=== PATIENT | female | born 1955 | race Caucasian/White ===

== ENCOUNTER → 2020-10-19 | Outpatient (CLI) | payer OTHER | LOC: M.LAB 16:27 | PROVIDERS: ATTEND Surgery | DX: Z01.812 Encounter for preprocedural laboratory examination (principal); Z20.822 Contact with and (suspected) exposure to COVID-19; K42.9 Umbilical hernia without obstruction or gangrene; K80.12 Calculus of gallbladder with acute and chronic cholecystitis without obstruction ==

== ENCOUNTER 2020-12-31 14:51 | Emergency (ER) | payer OTHER ==
[~2020-12-31] VITALS: Ht 154.9 cm; Wt 62.6 kg
[2020-12-31] MEDS ORDERED: VASOTEC5 MG PO (15:15)
[2020-12-31] MEDS ORDERED: LEVOTHYROXINE75 MC1 PO (15:15)
[2020-12-31] MEDS ORDERED: TOPAMAX 25 MG T25 MG PO (15:16)
[2020-12-31] MEDS ORDERED: MAGNESIUM500 MG PO (15:16)
[2020-12-31] MEDS ORDERED: POTASSIUM99 M1 PO (15:16)
[2020-12-31] MEDS ORDERED: ULTRAM 50MG TAB50 MG PO (15:16)
[2020-12-31] MEDS ORDERED: ZINC 15 MG LOZE15 MG PO (15:16)
[2020-12-31] MEDS ORDERED: ZYRTEC10 M5 PO (15:17)
[2020-12-31] MEDS ORDERED: VITAMIN D350 MCG PO (15:17)
[2020-12-31] MEDS ORDERED: FAMOTIDINE 20 M20 MG PO (15:17)
[2020-12-31 15:47] LABS: ABSOLUTE EOSINOPHILS 0.1 thou/uL (0.0-0.7); ABSOLUTE LYMPHOCYTES 1.4 thou/uL (0.8-5.3); ABSOLUTE MONOCYTES 0.5 thou/uL (0.0-1.2); ABSOLUTE NEUTROPHILS 3.7 thou/uL (1.6-8.1); BASOPHILS 0.4 %; EOSINOPHILS 2.1 %; HEMATOCRIT 40.7 % (37.0-47.0); HEMOGLOBIN 13.6 gm/dL (12.0-15.0); LYMPHOCYTES 25.3 %; MCH 30.3 pg (26.0-34.0); MCHC 33.3 g/dL (28.0-37.0); MCV 90.8 fL (80.0-100.0); MONOCYTES 8.1 %; MPV 7.6 fl. (7.2-11.1); NUCLEATED RBCS 0 /100WBC; PLATELET COUNT* 361 thou/uL (150-400); POLYS 64.1 %; RBC 4.48 mil/uL (4.20-5.00); WBC 5.7 thou/uL (4.0-11.0)
[2020-12-31 15:50] LABS: URINE BILIRUBIN NEGATIVE (Negative); URINE BLOOD NEGATIVE (Negative); URINE CLARITY CLEAR; URINE COLOR YELLOW; URINE GLUCOSE-RANDOM NEGATIVE (Negative); URINE KETONES NEGATIVE (Negative); URINE LEUKOCYTES-REFLEX NEGATIVE (Negative); URINE NITRITE-REFLEX NEGATIVE (Negative); URINE PROTEIN NEGATIVE (Negative); URINE SPECIFIC GRAVITY 1.015 (1.005-1.030); URINE UROBILINOGEN 0.2 E.U./dl (0.2-1.0)
[2020-12-31 16:04] LABS: CALCIUM 8.8 mg/dL (8.5-10.1); CREATININE 0.7 mg/dL (0.6-1.3); POTASSIUM 3.9 mmol/L (3.5-5.1)
[2020-12-31 16:08] LABS: ALBUMIN 3.5 g/dL (3.4-5.0); TOTAL BILIRUBIN 0.4 mg/dL (<0.1-1.0); TOTAL PROTEIN 7.3 g/dL (6.4-8.2)
[2020-12-31] MEDS ORDERED: CARAFATE1 GM PO (17:17)
[2020-12-31] MEDS ORDERED: ZOFRAN ODT4 MG DISSOLVE (17:17)
[2020-12-31 17:29] VITALS: BP 138/65
--- NOTE | 2021-01-03 15:13 | EKG ---
[place] [address] ELECTROCARDIOGRAM REPORT Name: FLAVIA LANCE Room: [facility]#: [id number] Admission: 12/31/20 Attend Phys: Discharge: 12/31/20 Date of : 59 Date of Service: 12/31/20 1557 Report #: [id number] THIS REPORT FOR: //name// [facility] ED Test Date: 2020-12-31 Test Time: 15:57:30 Pat Name: FLAVIA LANCE Department: Room: Gender: F L D Rn: MARILEE : 1955 Requested By: Manolo Betts Order Number: [id number] MD: Michael Rivas Measurements Intervals [place] Rate: 61 P: 24 IA: 173 QRS: -5 QRSD: 117 T: 40 QT: 457 QTc: 461 Interpretive Statements Sinus rhythm Incomplete right bundle branch block Low voltage, precordial leads Minimal ST elevation, lateral leads No previous ECG available for comparison Electronically Signed On 01-03-2021 15:13:12 CDT by Michael Rivas [email or web address] <ELECTRONICALLY SIGNED> By: Michael Rivas MD, [facility] 01/03/21 1513 1557 1557 Michael Rivas MD, [facility] /EPI
== END 2020-12-31 17:30 | disposition home or self-care (01) ==
LOC: M.ERS 14:51
PROVIDERS: Physician Assistant
DX: R11.2 Nausea with vomiting, unspecified (principal); Z88.5 Allergy status to narcotic agent; Z88.0 Allergy status to penicillin; Z90.49 Acquired absence of other specified parts of digestive tract; Z90.710 Acquired absence of both cervix and uterus; E03.9 Hypothyroidism, unspecified; I10 Essential (primary) hypertension